=== PATIENT | female | born 1970 | race Caucasian/White ===

== ENCOUNTER 2019-06-24 06:00 | Outpatient (CLI) | payer OTHER | END 2019-06-24 06:05 | disposition home or self-care (01) | LOC: LAB 06:00 → ADM 14:45 → EDSTATUS 07-04 14:45 → ADM 07-04 14:45 → AMB-ENDOS 07-04 14:45 | DX: K64.1 Second degree hemorrhoids (principal); K62.5 Hemorrhage of anus and rectum; Z01.818 Encounter for other preprocedural examination ==